=== PATIENT | female | born 1940 | race Two or more races ===

== ENCOUNTER 2017-06-22 15:58 | Emergency (ER) | payer MEDICARE ==
[~2017-06-22] VITALS: Ht 152.4 cm; Wt 54.4 kg
[2017-06-22] MEDS ORDERED: ACETAMINOPHEN325 M1 ORAL (16:15)
[2017-06-22] MEDS ORDERED: Morphine Sulfate 2mg/ml Inj IVP ONE (16:15)
[2017-06-22] MEDS ORDERED: COLACE100 MG ORAL (16:15)
[2017-06-22] MEDS ORDERED: VICODIN 5-3001 EACH ORAL (16:15)
[2017-06-22] MEDS ORDERED: LORazepam Inj 2mg/ml 1ml IV ONE (16:15)
[2017-06-22] MEDS ORDERED: ALBUTEROL2.5 MG/3 M INH (16:15)
[2017-06-22] MEDS ORDERED: ACETAMINOPHEN-1 EAC1 ORAL (16:15)
[2017-06-22] MEDS ORDERED: MULTIVITAMINS1 EAC2 ORAL (16:15)
[2017-06-22] MEDS ORDERED: MIRTAZAPINE7.5 MG ORAL (16:15)
[2017-06-22] MEDS ORDERED: [UNRECOGNIZED DRUG - OTHER] (16:15)
[2017-06-22] MEDS ORDERED: ASPIR 8181 MG ORAL (16:15)
[2017-06-22] MEDS ORDERED: vit d PO (16:15)
[2017-06-22 16:34] LABS: BASOPHILS % (AUTO) 0.7 % (0.0-2.0); EOSINOPHILS % (AUTO) 1.4 % (0.0-3.0); LYMPHOCYTES % (AUTO) 19.3 % (20.0-45.0); MEAN CORPUSCULAR HEMOGLOBIN 33.1 PG (27.0-31.0); MEAN CORPUSCULAR HGB CONC 34.4 G/DL (32.0-36.0); MEAN CORPUSCULAR VOLUME 96 FL (80-99); MEAN PLATELET VOLUME 5.8 FL (6.5-10.1); MONOCYTES % (AUTO) 7.4 % (1.0-10.0); NEUTROPHILS % (AUTO) 71.2 % (45.0-75.0); PLATELET COUNT 247 K/UL (150-450); RED BLOOD COUNT 3.74 M/UL (4.20-5.40); RED CELL DISTRIBUTION WIDTH 12.2 % (11.6-14.8); WHITE BLOOD COUNT 9.3 K/UL (4.8-10.8)
[2017-06-22 16:42] LABS: APPEARANCE,URINE CLEAR; KETONES,URINE NEGATIVE (NEGATIVE); LEUKOCYTE ESTERASE ,URINE 1+ (NEGATIVE); NITRITE,URINE NEGATIVE (NEGATIVE); PH,URINE 6 (4.5-8.0); PROTEIN,URINE NEGATIVE (NEGATIVE); UROBILINOGEN,URINE NORMAL MG/DL (0.0-1.0)
--- NOTE | 2017-06-22 16:47 | Emergency Room Report ---
History of Present Illness General Chief Complaint: Chest Pain Source: Patient, Medical Record, EMS Present Illness HPI Patient is a 76-year-old female brought in by EMS after increased chest pain. The patient reportedly had complaint of chest pain approximately one hour prior to arrival. The patient was not noted been vomiting or having any fever recently she was noted to feel somewhat weak last night. The patient's prior history of dementia. The patient is not allergic to penicillin nor latex History is obtained from patient's durable power of personal injury attorney. She is followed by Dr. Spicer. 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) Review of Systems All Other Systems: negative except mentioned in HPI Physical Exam Vital Signs Date Time Temp Pulse Resp B/P Pulse Ox O2 Delivery O2 Flow Rate FiO2 06/22/17 15:54 84 20 115/64 99 Room Air General Appearance: alert, non-toxic, mild distress, Chronically Ill ENT: normal voice Respiratory: chest non-tender, lungs clear, normal breath sounds Cardiovascular #1: normal peripheral pulses, regular rate, rhythm, no edema Gastrointestinal: normal bowel sounds, non tender, soft Musculoskeletal: normal inspection, back normal, digits/nails normal Neurologic: alert, responsive, conference services coordinator III-XII nml as tested, motor strength/tone normal Psychiatric: anxious, other - confused Skin: normal inspection, normal color Medical Decision Making Diagnostic Impression: Primary Impression: Chest pain Additional Impression: Chest pain of uncertain etiology ER Course patient presented for chest pain.Differential diagnosis included but was not limited to acute coronary syndrome, pulmonary embolism, pneumonia, aortic dissection, shingles, pneumothorax, aortic dissection, esophageal rupture, pericarditis. Because of complexity of patient's case laboratory testing and imaging studies were ordered.Chest x-ray one view read by radiology showed normal cardiac size without evident infiltrate. CT of the chest was ordered due to patient's elevated d-dimer. CT read by radiologist showed no evidence of central PE. Patient was noted to have EKG interpreted by me was normal sinus rhythm without acute ST or T wave changes. Rate of 85. Patient was given IV Ativan for agitation. She was given Solu-Medrol for rash to her right lower extremity which appears to be allergic reaction. Patient was noted to have negative troponin x2. The patient daughter was noted to have a durable power of personal injury attorney. I discussed the admitting the patient for further evaluation of chest pain the including laboratory testing and stress testing. She indicated understanding and declined admission. Patient will be given prescription for prednisone and Benadryl and cortisone cream for rash. Labs Test 06/22/17 16:20 06/22/17 16:43 06/22/17 19:55 Prothrombin Time 9.4 SEC (9.30-11.50) Prothromb Time International Ratio 0.9 (0.9-1.1) Activated Partial Thromboplast Time 25 SEC (23-33) D-Dimer 1697 ng/mL (<500) Urine Color Pale yellow Urine Appearance Clear Urine pH 6 (4.5-8.0) Urine Specific [place] 1.025 (1.005-1.035) Urine Protein Negative (NEGATIVE) Urine Glucose (UA) Negative (NEGATIVE) Urine Ketones Negative (NEGATIVE) Urine Occult Blood 1+ (NEGATIVE) Urine Nitrite Negative (NEGATIVE) Urine Bilirubin Negative (NEGATIVE) Urine Urobilinogen Normal MG/DL (0.0-1.0) Urine Leukocyte Esterase 1+ (NEGATIVE) Urine RBC 0-2 /HPF (0 - 2) Urine WBC 0-2 /HPF (0 - 2) Urine Squamous Epithelial Cells Occasional /LPF Urine Bacteria Occasional /HPF (NONE) Sodium Level 141 mEQ/L (135-145) Potassium Level 4.8 mEQ/L (3.4-4.9) Chloride Level 102 mEQ/L (98-107) Carbon Dioxide Level 27 mEQ/L (20-30) Anion Gap 12 (5-15) Blood Urea Nitrogen 17 mg/dL (7-23) Creatinine 0.7 mg/dL (0.5-0.9) Estimat Glomerular Filtration Rate mL/min (>60) Glucose Level 87 mg/dL (74-106) Calcium Level 10.2 mg/dL (8.6-10.2) Total Bilirubin < 0.2 mg/dL (0.0-1.2) Aspartate Amino Transf (AST/SGOT) 18 U/L (5-40) Alanine Aminotransferase (ALT/SGPT) 11 U/L (3-33) Alkaline Phosphatase 118 U/L (35-104) Total Creatine Kinase 41 U/L (26-140) Creatine Kinase MB 1.5 ng/mL (< 3.8) Creatine Kinase MB Relative Index 3.6 Pro-B-Type Natriuretic Peptide 130 pg/mL (0-450) Total Protein 7.3 g/dL (6.6-8.7) Albumin 4.5 g/dL (3.5-5.2) Globulin 2.8 g/dL Albumin/Globulin Ratio 1.6 (1.0-2.7) Lipase 29 U/L (< 60) Lactic Acid Level 1.00 mmol/L (0.66-2.22) White Blood Count 7.3 K/UL (4.8-10.8) Red Blood Count 3.97 M/UL (4.20-5.40) Hemoglobin 12.7 G/DL (12.0-16.0) Hematocrit 37.4 % (37.0-47.0) Mean Corpuscular Volume 94 FL (80-99) Mean Corpuscular Hemoglobin 32.0 PG (27.0-31.0) Mean Corpuscular Hemoglobin Concent 33.9 G/DL (32.0-36.0) Red Cell Distribution Width 12.2 % (11.6-14.8) Platelet Count 233 K/UL (150-450) Mean Platelet Volume 5.9 FL (6.5-10.1) Neutrophils (%) (Auto) 82.3 % (45.0-75.0) Lymphocytes (%) (Auto) 14.3 % (20.0-45.0) Monocytes (%) (Auto) 2.3 % (1.0-10.0) Eosinophils (%) (Auto) 0.6 % (0.0-3.0) Basophils (%) (Auto) 0.6 % (0.0-2.0) EKG Diagnostic Results Rate: normal Rhythm: NSR ST Segments: no acute changes Rhythm Strip Diag. Results EP Interpretation: yes Rhythm: NSR, no PVC's, no ectopy Last Vital Signs Date Time Temp Pulse Resp B/P Pulse Ox O2 Delivery O2 Flow Rate FiO2 06/22/17 15:54 84 20 115/64 99 Room Air Status: improved Disposition: HOME, SELF-CARE Condition: Stable Scripts Diphenhydramine Hcl* (BENADRYL*) 25 Mg Capsule 25 MG ORAL Q6H Y for Itching, #30 CAP Prov: Miguelangel Harrison 06/22/17 Hydrocortisone Acetate 1% Onit (HYDROCORTISONE 1% OINT) Y Oint 28 GM TP DAILY, #30 GM Prov: Miguelangel Harrison 06/22/17 Prednisone* (PREDNISONE*) 20 Mg Tablet 40 MG ORAL DAILY, #10 TAB Prov: Miguelangel Harrison 06/22/17 Referrals: NON PHYSICIAN (PCP) Miguelangel Harrison Jun 22, 2017 16:47
[2017-06-22 16:49] LABS: ALANINE AMINOTRANSFERASE 11 U/L (3-33); ALBUMIN/GLOBULIN RATIO 1.6 (1.0-2.7); ANION GAP 12 (5-15); ASPARTATE AMINO TRANSFERASE 18 U/L (5-40); CALCIUM 10.2 mg/dL (8.6-10.2); CARBON DIOXIDE 27 mEQ/L (20-30); CHLORIDE 102 mEQ/L (98-107); CREATININE 0.7 mg/dL (0.5-0.9); HEMOLYSIS 3; LIPASE 29 U/L (< 60); POTASSIUM 4.8 mEQ/L (3.4-4.9); SODIUM 141 mEQ/L (135-145); TOTAL PROTEIN 7.3 g/dL (6.6-8.7); TROPONIN I < 0.30 ng/mL (<=0.30)
[2017-06-22 16:55] LABS: INR 0.9 (0.9-1.1); PROTHROMBIN TIME 9.4 SEC (9.30-11.50)
[2017-06-22 16:56] LABS: BACTERIA,URINE OCCASIONAL /HPF; RBC,URINE 0-2 /HPF (0 - 2); SQUAMOUS EPITHELIAL CELL,UR OCCASIONAL /LPF (NONE/OCC); WBC,URINE 0-2 /HPF (0 - 2)
[2017-06-22 17:02] LABS: CKMB 1.5 ng/mL (< 3.8)
[2017-06-22 17:05] VITALS: BP 121/72
[2017-06-22] MEDS ORDERED: Solu-MEDROL 125mg Inj IVP ONE (17:30)
--- NOTE | 2017-06-22 17:32 | Diagnostic Imaging Report ---
Indication: SOB Technique: One view of the chest Comparison: none Findings: Lungs and pleural spaces are clear. Heart size is normal Impression: No acute process
[2017-06-22 19:15] VITALS: BP 135/87
[2017-06-22 20:13] LABS: BASOPHILS % (AUTO) 0.6 % (0.0-2.0); EOSINOPHILS % (AUTO) 0.6 % (0.0-3.0); LYMPHOCYTES % (AUTO) 14.3 % (20.0-45.0); MEAN CORPUSCULAR HGB CONC 33.9 G/DL (32.0-36.0); MEAN CORPUSCULAR VOLUME 94 FL (80-99); MEAN PLATELET VOLUME 5.9 FL (6.5-10.1); MONOCYTES % (AUTO) 2.3 % (1.0-10.0); NEUTROPHILS % (AUTO) 82.3 % (45.0-75.0); PLATELET COUNT 233 K/UL (150-450); RED BLOOD COUNT 3.97 M/UL (4.20-5.40); RED CELL DISTRIBUTION WIDTH 12.2 % (11.6-14.8); WHITE BLOOD COUNT 7.3 K/UL (4.8-10.8)
[2017-06-22 20:36] LABS: TROPONIN I < 0.30 ng/mL (<=0.30)
[2017-06-22] MEDS ORDERED: HYDROCORTISONE28 G2 TP (20:44)
[2017-06-22] MEDS ORDERED: BENADRYL25 MG ORAL (20:44)
[2017-06-22] MEDS ORDERED: PREDNISONE20 MG ORAL (20:44)
[2017-06-22 21:10] VITALS: BP 127/84
--- NOTE | 2017-06-23 08:53 | Diagnostic Imaging Report ---
ndication: Chest pain Technique: IV administration nonionic contrast. Spiral acquisitions obtained from the lung bases to the lung apices. Multiplanar and 3-D reconstructions were generated. Total dose length product 386 mGycm. CTDIvol(s) 12, 12, 12, 12 mGy. Dose reduction achieved using automated exposure control Comparison: None Findings: There is considerable image degradation due to motion artifact. Pulmonary arterial bolus opacification is adequate. No gross intraluminal filling defects to suggest acute pulmonary embolus, although due to motion artifact small peripheral emboli could easily be missed. No evidence of thoracic aortic aneurysm or dissection. There is classic branching anatomy of the great neck vessels. No pulmonary arterial dilatation or right ventricular dilatation. The lungs demonstrate bilateral basilar scarring and generalized mild hyperinflation. No focal infiltrates, effusions, ingestion. No definite nodules or masses. The heart size is normal. No pericardial effusion. No mediastinal or hilar mass or adenopathy. No axillary or chest wall mass or adenopathy. The bones demonstrate degenerative spondylosis changes. There is suggestion of a 7 mm splenic artery aneurysm in the splenic hilum. Impression: Limited exam, due to motion artifact. No large vessel central pulmonary embolus demonstrated, but small peripheral emboli could easily be missed Mild hyperinflation, suspect COPD. 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 Degenerative spondylosis This agrees with the preliminary interpretation provided overnight by Dr. Finney The CT scanner at [facility] is accredited by the [employer] [employer] and the scans are performed using protocols designed to limit radiation exposure to as low as reasonably achievable to attain images of sufficient resolution adequate for diagnostic evaluation.
--- NOTE | 2017-06-23 15:45 | Cardiology Report ---
APPROVED REPORT EKG Measurement Heart [id number] Normal sinus rhythm Normal ECG
== END 2017-06-22 21:10 | disposition home or self-care (01) ==
LOC: EDBD 15:58 → EMR 16:20 → UNDOADMIN 17:33 → 2E 17:33 → EDBEDREQ 17:50 → EMR 21:10
DX: R07.9 Chest pain, unspecified (principal); F03.90 Unspecified dementia, unspecified severity, without behavioral disturbance, psychotic disturbance, mood disturbance, and anxiety; Z88.0 Allergy status to penicillin; Z88.8 Allergy status to other drugs, medicaments and biological substances; I10 Essential (primary) hypertension; J44.9 Chronic obstructive pulmonary disease, unspecified; Z91.040 Latex allergy status; M47.9 Spondylosis, unspecified
CPT/HCPCS: 36415; 71010; 71275; 80053; 81003; 82550; 82553; 83605; 83690; 83880; 84484; 85025; 85379; 85610; 85730; 87040; 87081; 93005; 96374; 96375; 99284; J2930; Q9967